=== PATIENT | male | born 1990 | race Caucasian/White ===

== ENCOUNTER 2025-04-06 10:02 | Inpatient (IN) | payer MEDICAID ==
[~2025-04-06] VITALS: Ht 180.3 cm; Wt 81.8 kg
[2025-04-06] MEDS ORDERED: LORazepam 2 MG/ML VIAL ONE (10:18)
[2025-04-06] MEDS: LORazepam 2 MG/ML VIAL IM ONE (10:31)
[2025-04-06 10:51] LABS: COVID AG,FIA SOURCE NASAL SWAB
[2025-04-06 11:11] LABS: SARS-COV2 (COVID) ANTIGEN,FIA Negative (Negative)
[2025-04-06 15:21] LABS: PLATELET COUNT (AUTO) 291 K/uL (150-450); RED BLOOD CELL COUNT(AUTO) 4.77 MIL/uL (4.50-5.90); RED CELL DISTRIBUTION WIDTH 13.0 % (11.5-14.5); WHITE BLOOD COUNT (AUTO) 11.2 K/uL (4.5-11.0)
[2025-04-06 15:32] LABS: CALCIUM, TOTAL 8.6 mg/dL (8.8-10.5); CREATININE 1.77 mg/dL (0.60-1.30); GLOMERULAR FILTR. RATE CALC 44.0 mL/min (>60); GLUCOSE,RANDOM 110.0 mg/dL (70-110); SODIUM SERUM 137.0 mmol/L (136-145); UREA NITROGEN, BLOOD 29.0 mg/dL (7-18)
[2025-04-06 17:40] VITALS: O2SAT 98
[2025-04-06 20:29] VITALS: BP 108/82; PULSE 99; RESP 17; TEMP 97.3; O2SAT 99
[2025-04-07 09:07] VITALS: BP 102/78; PULSE 99; RESP 17; TEMP 98.3; O2SAT 96
[2025-04-07] MEDS ORDERED: ALBUTEROL SULFATE HFA 90 MCG/PUFF 8 GM INHALER IH PRN (12:15)
[2025-04-07] MEDS ORDERED: IBUPROFEN 600 MG TABLET PO PRN (12:15)
[2025-04-07] MEDS ORDERED: ONDANSETRON 4 MG TABLET PO PRN (12:15)
[2025-04-07] MEDS ORDERED: LOPERAMIDE HCL 2 MG CAPSULE PO PRN (12:15)
[2025-04-07] MEDS ORDERED: OMEPRAZOLE 20 MG CAPSULE PO PRN (12:15)
[2025-04-07] MEDS ORDERED: PETROLATUM,WHITE 28 GM JELLY TP PRN (12:15)
[2025-04-07] MEDS ORDERED: ACETAMINOPHEN 325 MG TABLET PO PRN (12:15)
[2025-04-07] MEDS ORDERED: MAG HYDROX/ALUMINUM HYD/SIMETH ES 30 ML SUSPENSION UDCUP PO PRN (12:15)
[2025-04-07] MEDS ORDERED: MAGNESIUM HYDROXIDE SUSPENSION 30 ML UDCUP PO PRN (12:15)
[2025-04-07] MEDS ORDERED: BENZOCAINE/MENTHOL [CEPACOL] LOZENGE PO PRN (12:15)
[2025-04-07] MEDS ORDERED: DOCUSATE SODIUM 100 MG CAPSULE PO PRN (12:15)
[2025-04-07] MEDS ORDERED: BACITRACIN 28 GM OINTMENT TP PRN (12:15)
[2025-04-07 20:18] VITALS: BP 108/68; PULSE 63; RESP 18; TEMP 97.5; O2SAT 99
[2025-04-08 08:29] VITALS: BP 102/64; PULSE 94; RESP 18; TEMP 97.5; O2SAT 98
[2025-04-08 20:52] VITALS: BP 105/65; PULSE 65; RESP 17; TEMP 97.6; O2SAT 99
[2025-04-08] MEDS: ZOLPIDEM TARTRATE 10 MG TABLET PO PRN (21:16)
[2025-04-09 08:30] VITALS: BP 127/76; PULSE 87; RESP 18; TEMP 97.3; O2SAT 99
== END 2025-04-09 10:05 | disposition home or self-care (01) | DRG 750 ==
LOC: EMS 10:02 → B3A 17:34
PROVIDERS: ADMIT Psychiatry & Neurology Psychiatry; ATTEND Psychiatry & Neurology Psychiatry
DX: F20.9 Schizophrenia, unspecified (principal); F10.90 Alcohol use, unspecified, uncomplicated; F41.9 Anxiety disorder, unspecified; G47.00 Insomnia, unspecified; K59.00 Constipation, unspecified; F32.A Depression, unspecified; Y90.0 Blood alcohol level of less than 20 mg/100 ml; Z20.822 Contact with and (suspected) exposure to COVID-19; Z87.891 Personal history of nicotine dependence
CPT/HCPCS: 80048; 85025; 96372; 99285; G0480; J1200; J1630; J2060